=== PATIENT | male | born 1950 | race Native Hawaiian/Other Pacific Islander ===

== ENCOUNTER 2018-04-09 04:07 | Emergency (ER) | payer OTHER ==
[~2018-04-09] VITALS: Ht 162.6 cm; Wt 74.8 kg
[2018-04-09 04:07] VITALS: BP 162/96; TEMP 97.7
[2018-04-09 04:19] LABS: PLATELET COUNT 166 K/uL (142-355)
[2018-04-09 04:26] LABS: POTASSIUM 4.1 mmol/L (3.6-5.2)
[2018-04-09] MEDS ORDERED: OMEPRAZOLE DR20 MG PO (06:04)
[2018-04-09] MEDS ORDERED: ASPIRIN 8181 MG PO (06:05)
[2018-04-09] MEDS ORDERED: AMLODIPINE BESYLATE PO (06:05)
[2018-04-09] MEDS ORDERED: CARV6.25 PO (06:06)
[2018-04-09] MEDS ORDERED: DIVA250T PO (06:07)
[2018-04-09] MEDS ORDERED: LEVE500T5 PO (06:08)
[2018-04-09] MEDS ORDERED: NAMENDA10 MG PO (06:09)
[2018-04-09] MEDS ORDERED: DONE5TAB PO (06:11)
[2018-04-09] MEDS ORDERED: DIVA500T2 PO (06:11)
[2018-04-09] MEDS ORDERED: PRAVACHOL80 MG PO (06:12)
[2018-04-09] MEDS ORDERED: GNP MELATONIN MA5 MG PO (06:12)
[2018-04-09] MEDS ORDERED: DEPO-PROVER150 MG/M2 IM (06:14)
== END 2018-04-09 04:57 | disposition other institution (70) ==
LOC: ED 04:07
PROVIDERS: Family Medicine
DX: F31.89 Other bipolar disorder (principal); F03.91 Unspecified dementia, unspecified severity, with behavioral disturbance; I10 Essential (primary) hypertension; J44.9 Chronic obstructive pulmonary disease, unspecified; I25.10 Atherosclerotic heart disease of native coronary artery without angina pectoris; Z04.6 Encounter for general psychiatric examination, requested by authority
CPT/HCPCS: 36415; 80053; 85027; 93005; 99285